=== PATIENT | female | born 1980 | race Caucasian/White ===

== ENCOUNTER 2018-11-28 07:26 | Day surgery (SDC) | payer MEDICAID, OTHER ==
[2018-11-28] MEDS ORDERED: Lidocaine 1% with EPINEPHrine 1:100,000 10 ML MDV ONE (07:35)
--- NOTE | 2018-11-28 08:05 | PCM.PREANE ---
Preanesthetic Assessment - Anesthesia/Transfusion/Family Hx Anesthesia History: Prior Anesthesia Without Reaction Other Type of Anesthesia Reaction Comment: "had panic attack waking up from gallbladder surgery" Family History of Anesthesia Reaction: No Transfusion History: No Prior Transfusion(s) - Review of Systems General: No Symptoms Pulmonary: No Symptoms Cardiovascular: No Symptoms Gastrointestinal: No Symptoms Neurological: No Symptoms Other: Reports: None - Physical Assessment NPO Status Date: 11/27/18 Height: 5 ft 3 in Weight: 59.421 kg ASA Class: 2 Mental Status: Alert & Oriented x3 Airway Class: Mallampati = 1 Dentition: Reports: Normal Dentition ROM/Head Extension: Full Lungs: Clear to Auscultation, Normal Respiratory Effort Cardiovascular: Regular Rate, Regular Rhythm - Lab Values: Laboratory Last Values WBC 8.41 K/uL (4.0-11.0) 11/27/18 12:40 RBC 4.18 M/uL (4.30-5.90) L 11/27/18 12:40 Hgb 12.7 g/dL (12.0-16.0) 11/27/18 12:40 Hct 38.4 % (36.0-46.0) 11/27/18 12:40 MCV 91.9 fL (80.0-98.0) 11/27/18 12:40 MCH 30.4 pg (27.0-32.0) 11/27/18 12:40 MCHC 33.1 g/dL (31.0-37.0) 11/27/18 12:40 RDW Std Deviation 43.5 fl (28.0-62.0) 11/27/18 12:40 RDW Coeff of Maribell 13 % (11.0-15.0) 11/27/18 12:40 Plt Count 335 K/uL (150-400) 11/27/18 12:40 MPV 12.00 fL (7.40-12.00) 11/27/18 12:40 Nucleated RBC % 0.0 /100WBC 11/27/18 12:40 Nucleated RBCs # 0 K/uL 11/27/18 12:40 HCG, Qual NEGATIVE (NEG) 11/27/18 12:40 - Allergies Allergies/Adverse Reactions: Allergies Allergy/AdvReac Type Severity Reaction Status Date / Time No Known Allergies Allergy Verified 11/21/18 09:20 - Blood Blood Available: No - Anesthesia Plan Pre-Op Medication Ordered: None - Acknowledgements Anesthesia Type Planned: General Anesthesia Pt an Appropriate Candidate for the Planned Anesthesia: Yes Alternatives and Risks of Anesthesia Discussed w Pt/Guardian: Yes Pt/Guardian Understands and Agrees with Anesthesia Plan: Yes Additional Comments: anes prob list = none PLAN: ga/lma or simple face mask PreAnesthesia Questionnaire HEENT History: Reports: Other (See Below) Other HEENT History: wears glasses/contacts Cardiovascular History: Reports: None Respiratory History: Reports: None Gastrointestinal History: Reports: None Genitourinary History: Reports: None 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: , 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 Musculoskeletal History: Reports: None Neurological History: Reports: None Psychiatric History: Reports: Anxiety Endocrine/Metabolic History: Reports: None Hematologic History: Reports: None Immunologic History: Reports: None Oncologic (Cancer) History: Reports: None Dermatologic History: Reports: None - Infectious Disease History Infectious Disease History: Reports: None - Past Surgical History Head Surgeries/Procedures: Reports: None HEENT Surgical History: Reports: None Cardiovascular Surgical History: Reports: None Respiratory Surgical History: Reports: None GI Surgical History: Reports: Cholecystectomy Female Surgical History: Reports: Breast Implant Endocrine Surgical History: Reports: None Neurological Surgical History: Reports: None Musculoskeletal Surgical History: Reports: None Oncologic Surgical History: Reports: None Dermatological Surgical History: Reports: None - SUBSTANCE USE Smoking Status *Q: Never Smoker Tobacco Use Within Last Twelve Months: No Recreational Drug Use History: No - HOME MEDS Home Medications: Home Meds Norgestimate-Ethinyl Estradiol [Ortho Tri-Cyclen 28 Tablet] 1 tab PO DAILY 11/21 [History] - CURRENT (IN HOUSE) MEDS Current Meds: Current Medications Discontinued Medications Lidocaine/Epinephrine (Xylocaine 1% With Epinephrine 1:100,000) Confirm Administered Dose 10 ml .ROUTE .STK-MED ONE Stop: 11/28/18 07:36
[2018-11-28] MEDS ORDERED: Lactated Ringers 1,000 ML IV SCH (08:45)
[2018-11-28] MEDS ORDERED: Propofol 200 MG/20 ML SDV ONE ×2 (08:46→08:54)
[2018-11-28] MEDS ORDERED: fentaNYL 100 MCG/2 ML SDV ONE ×2 (08:47→08:54)
[2018-11-28] MEDS ORDERED: Lidocaine 2% 5 ML SDV ONE ×2 (08:47→08:53)
[2018-11-28] MEDS ORDERED: Midazolam 1 MG/ML 2 ML SDV ONE ×2 (08:47→08:54)
--- NOTE | 2018-11-28 09:59 | PCM.OPNOTE ---
- General Post-Op/Procedure Note Date of Surgery/Procedure: 11/28/18 Operative Procedure(s): LEEP Findings: AWE 5-7 o'clock Pre Op Diagnosis: KRISTI II Post-Op Diagnosis: Same Primary Surgeon: Velvet Jackson Anesthesia Provider: Adrian Fitch Pathology: ectocervical specimen, endocervical curettage Fluid Replacement, Intraop: 800 EBL in mLs: 10 Complications: None Known Condition: Good
--- NOTE | 2018-11-28 10:15 | PCM.POSTAN ---
POST ANESTHESIA ASSESSMENT - MENTAL STATUS Mental Status: Alert, Oriented - RESPIRATORY Respiratory Status: Respiratory Rate WNL, Airway Patent, O2 Saturation Stable - CARDIOVASCULAR CV Status: Pulse Rate WNL, Blood Pressure Stable - GASTROINTESTINAL GI Status: No Symptoms - POST OP HYDRATION Hydration Status: Adequate & Stable
--- NOTE | 2018-11-28 10:32 | PCM48HPAN ---
Post Anesthesia Note - EVALUATION WITHIN 48HRS OF ANESTHETIC Vital Signs in Normal Range: Yes Patient Participated in Evaluation: Yes Respiratory Function Stable: Yes Airway Patent: Yes Cardiovascular Function Stable: Yes Hydration Status Stable: Yes Pain Control Satisfactory: Yes Nausea and Vomiting Control Satisfactory: Yes Mental Status Recovered: Yes Resp Rate: 12
[2018-11-28 11:57] VITALS: BP 137/99
--- NOTE | 2018-11-28 12:15 | OR ---
SURGEON: Velvet Jackson M.D. DATE OF PROCEDURE: 11/28/2018 PREOPERATIVE DIAGNOSIS: Cervical intraepithelial neoplasia 2. POSTOPERATIVE DIAGNOSIS: Cervical intraepithelial neoplasia 2. PROCEDURE: Loop electrode excisional procedure. PRIMARY SURGEON: Velvet Jcakson M.D. ANESTHESIA: Cervical block and general MAC. ESTIMATED BLOOD LOSS: Less than 10 mL. FLUIDS: 800 mL of crystalloid. FINDINGS: Acetowhite epithelium from 5 to 7 o'clock. COMPLICATIONS: None known. DISPOSITION: Stable to recovery. BRIEF HISTORY: This is a 38-year-old female. She has had document KRISTI 2 on biopsy of the cervix and recommendation was to proceed with a loop electrode excisional procedure with risks discussed including bleeding, infection, future cervical incompetence. Understanding these risks, she does desire to proceed. DESCRIPTION OF PROCEDURE: With the patient in the dorsal lithotomy position, under adequate IV sedation, the speculum was placed to the vagina as well as the vaginal sidewall retractor, which were both insulated. Colposcopy was performed after dilute acetic acid was applied to the cervix with findings as noted above. A total of 15 mL of 1% lidocaine with epinephrine was injected in the 12, 5, and 7 o'clock position of the cervix. The anterior lip of the cervix was grasped with a single-tooth tenaculum. Lugol solution was applied identifying the nonstaining area from 5 to 7 o'clock. A LEEP loop was then utilized with pure cut setting of 60 to excise the exocervix, which was labeled at 12 o'clock with a suture. Sharp curettage was then performed to the endocervix and collected with a Cytobrush and sent as a separate specimen. The base was then cauterized with pure coag 60 ball tip followed by Monsel's solution. The cervix was hemostatic. The instruments were removed from the vagina. Final sponge, needle, and instrument counts were reported as correct. There were no complications. The patient was transferred to recovery in good condition. GAETANO / DARYN /[id number]
== END 2018-11-28 10:40 | disposition home or self-care (01) ==
LOC: MW.SDS 07:26
PROVIDERS: ATTEND Obstetrics & Gynecology
DX: D06.1 Carcinoma in situ of exocervix (principal); F41.9 Anxiety disorder, unspecified; Z30.9 Encounter for contraceptive management, unspecified; Z88.0 Allergy status to penicillin
CPT/HCPCS: 36415; 57522; 84703; 85027; J2001; J2250; J2704; J3010; J7120; 00940; 88305; 88307

== ENCOUNTER 2019-01-01 20:06 | Emergency (ER) | payer BC, OTHER ==
[2019-01-01] MEDS ORDERED: Ketorolac 30 MG/ML SDV IVPUSH ONE (20:42)
[2019-01-01] MEDS ORDERED: Sodium Chloride 0.9% 1,000 ML IV SCH (20:45)
[2019-01-01] MEDS ORDERED: Levofloxacin/Dextrose 5%-Water 750 MG in Premix Bag 1 BAG IV ONE (20:46)
[2019-01-01] MEDS ORDERED: LORazepam 2 MG/ML SDV IVPUSH ONE (20:58)
--- NOTE | 2019-01-01 22:00 | CR ---
INDICATION: Cervical spine pain for 2 weeks, then went to chiropractor and now pain is worse TECHNIQUE: Cervical spine radiograph 3 views COMPARISON: None FINDINGS: Bone: No acute fractures or aggressive bone lesions are identified. The tip of the dens is obscured by teeth on the open mouth odontoid view. Alignment is normal. Disc: The disc spaces are unremarkable in appearance. The facet joints are unremarkable. Soft tissue: Unremarkable. No radiopaque foreign bodies are seen. IMPRESSION: 1. No acute osseous injuries or abnormalities are noted. Dictated by: Erich Cabello MD @ 01/01/2019 21:58:36 (Electronically Signed)
--- NOTE | 2019-01-01 22:24 | EDM.PDOC ---
ED HPI GENERAL MEDICAL PROBLEM - General Chief Complaint: Neck Problem Stated Complaint: PT HAS NECK PAIN Time Seen by Provider: 01/01/19 22:20 Source of Information: Reports: Patient - History of Present Illness INITIAL COMMENTS - FREE TEXT/NARRATIVE: HISTORY AND PHYSICAL: History of present illness: []Issue presents with 10 out of 10 neck pain right trapezius distribution, she has had symptoms over the last month she has been on diclofenac and Flexeril, she is seeing the chiropractor today symptoms becoming much worse after adjustment She was provided fluids Toradol and Ativan which results symptoms to where she feels normal has 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 Past medical history: As per history of present illness and as reviewed below otherwise noncontributory. Surgical history: As per history of present illness and as reviewed below otherwise noncontributory. Social history: No reported history of drug or alcohol abuse. Family history: As per history of present illness and as reviewed below otherwise noncontributory. Physical exam: HEENT: Atraumatic, normocephalic, pupils reactive, negative for conjunctival pallor or scleral icterus, mucous membranes moist, throat clear, neck supple, nontender, trachea midline. Muscle exam as per history of present illness Lungs: Clear to auscultation, breath sounds equal bilaterally, chest nontender. Heart: S1S2, regular, negative for clicks, rubs, or JVD. Abdomen: Soft, nondistended, nontender. Negative for masses or hepatosplenomegaly. Negative for costovertebral tenderness. Pelvis: Stable nontender. Genitourinary: Deferred. Rectal: Deferred. Extremities: Atraumatic, negative for cords or calf pain. Neurovascular unremarkable. Neuro: Awake, alert, oriented. Cranial nerves II through XII unremarkable. Cerebellum unremarkable. Motor and sensory unremarkable throughout. Exam nonfocal. Diagnostics: [Vertical supine plain films ] Therapeutics: [1 L normal saline bolus Ativan 1 mg IV Toradol 30 mg IV Patient is currently out of Flexeril and diclofenac-which really had no benefit for the patient per patient Ativan 0.5 by mouth 3 times a day when necessary #15 no refill provided Toradol 10 mg by mouth 3 times a day when necessary for 15 no refill ice Soft collar ] Impression: [ paracervical muscle spasm Right trapezius distribution spasm with right SCM spasm ] Definitive disposition and diagnosis as appropriate pending reevaluation and review of above. 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 Musculoskeletal History: Reports: None Neurological History: Reports: None Psychiatric History: Reports: Anxiety Endocrine/Metabolic History: Reports: None Hematologic History: Reports: None Immunologic History: Reports: None Oncologic (Cancer) History: Reports: None Dermatologic History: Reports: None - Infectious Disease History Infectious Disease History: Reports: Chicken Pox - Past Surgical History Head Surgeries/Procedures: Reports: None HEENT Surgical History: Reports: None Cardiovascular Surgical History: Reports: None Respiratory Surgical History: Reports: None GI Surgical History: Reports: Cholecystectomy Female Surgical History: Reports: Breast Implant, LEEP Endocrine Surgical History: Reports: None Neurological Surgical History: Reports: None Musculoskeletal Surgical History: Reports: None Oncologic Surgical History: Reports: None Dermatological Surgical History: Reports: None Social & Family History - Family History Family Medical History: Noncontributory Endocrine/Metabolic: Reports: Diabetes, type II - Tobacco Use Smoking Status *Q: Never Smoker - Caffeine Use Caffeine Use: Reports: Soda - Recreational Drug Use Recreational Drug Use: No - Sexual History Sexual History: Reports: Sexually Active ED ROS GENERAL - Review of Systems Review Of Systems: See Below ED EXAM, GENERAL - Physical Exam Exam: See Below Course - Vital Signs Last Recorded V/S: Last Vital Signs Temp 98.5 F 01/01/19 20:21 Pulse 94 01/01/19 20:21 Resp 24 H 07/22/19 20:21 BP 180/124 H 01/01/19 20:21 Pulse Ox 100 01/01/19 20:21 - Orders/Labs/Meds Orders: Active Orders 24 hr Category Date Time Status Sodium Chloride 0.9% [Normal Saline] 1,000 ml Med 01/01/19 20:45 Active IV STAT Medication Orders Sodium Chloride (Normal Saline) 1,000 mls @ 125 mls/hr IV STAT MARCE Last Infusion: 01/01/19 21:20 Dose: 999 mls/hr Admin: 01/01/19 21:00 Dose: 125 mls/hr Labs: Laboratory Tests 01/01/19 Range/Units 20:44 Urine HCG, Qual NEGATIVE (NEGATIVE) Meds: Medications Generic Name Dose Route Start Last Admin Trade Name Freq PRN Reason Stop Dose Admin Sodium Chloride 1,000 mls @ 125 mls/hr 01/01/19 20:45 01/01/19 21:20 Normal Saline IV 999 mls/hr STAT MARCE Infusion Discontinued Medications Generic Name Dose Route Start Last Admin Trade Name Freq PRN Reason Stop Dose Admin Levofloxacin/Dextrose 750 mg/ 150 mls @ 100 mls/hr 01/01/19 20:46 Premix IV 01/01/19 22:15 ONETIME ONE Ketorolac Tromethamine 30 mg 01/01/19 20:42 01/01/19 21:00 Toradol IVPUSH 01/01/19 20:43 30 mg ONETIME ONE Administration Lorazepam 1 mg 01/01/19 20:58 01/01/19 21:20 Ativan IVPUSH 01/01/19 20:59 1 mg ONETIME ONE Administration Departure - Departure Time of Disposition: 22:23 Disposition: Home, Self-Care 01 Condition: Good Clinical Impression: Muscle spasm - Discharge Information Referrals: PCP,None [Primary Care Provider] - Additional Instructions: Medication as prescribed Well patches may benefit Return if symptoms persist or worsen Follow-up with primary care in 2 weeks sooner as needed The following information is given to patients seen in the emergency department who are being discharged to home. This information is to outline your options for follow-up care. We provide all patients seen in our emergency department with a follow-up referral. The need for follow-up, as well as the timing and circumstances, are variable depending upon the specifics of your emergency department visit. If you don't have a primary care physician on staff, we will provide you with a referral. We always advise you to contact your personal physician following an emergency department visit to inform them of the circumstance of the visit and for follow-up with them and/or the need for any referrals to a consulting specialist. The emergency department will also refer you to a specialist when appropriate. This referral assures that you have the opportunity for follow-up care with a specialist. All of these measure are taken in an effort to provide you with optimal care, which includes your follow-up. Under all circumstances we always encourage you to contact your private physician who remains a resource for coordinating your care. When calling for follow-up care, please make the office aware that this follow-up is from your recent emergency room visit. If for any reason you are refused follow-up, please contact the [facility] emergency department at and asked to speak to the emergency department charge nurse. - My Orders Last 24 Hours: My Active Orders 01/01/19 20:45 Sodium Chloride 0.9% [Normal Saline] 1,000 ml IV STAT - Assessment/Plan Last 24 Hours: My Active Orders 01/01/19 20:45 Sodium Chloride 0.9% [Normal Saline] 1,000 ml IV STAT
[2019-01-01 22:38] VITALS: BP 162/111
== END 2019-01-01 22:38 | disposition home or self-care (01) ==
LOC: MW.ED 20:06
DX: M62.838 Other muscle spasm (principal); M54.2 Cervicalgia; Z90.49 Acquired absence of other specified parts of digestive tract; Z88.0 Allergy status to penicillin
CPT/HCPCS: 72040; 81025; 96361; 96374; 96375; 99283; J1885; J2060; J7040